=== PATIENT | female | born 1995 | race African-American/Black ===

== ENCOUNTER 2016-09-01 11:34 | Emergency (ER) | payer MEDICAID ==
[2016-09-01 11:39] VITALS: BP 118/73
[2016-09-01] MEDS ORDERED: IBUPROFEN 800 MG TABLET PO ONE (12:17)
--- NOTE | 2016-09-01 12:19 | ER Document Report ---
ED Medical Screen (RME) - General Stated Complaint: FEVER Mode of Arrival: Ambulatory Information source: Patient Notes: Patient presents with fevers body aches started yesterday. I have greeted and performed a rapid initial assessment of this patient. A comprehensive ED assessment and evaluation of the patient, analysis of test results and completion of the medical decision making process will be conducted by additional ED providers. TRAVEL OUTSIDE OF THE [place] IN LAST 30 DAYS: No - Related Data Allergies/Adverse Reactions: fish derived [Fish derived] Allergy (Verified 09/01/16 12:17) Past Medical History Past Surgical History: Reports: Hx Section - Immunizations Hx Diphtheria, Pertussis, Tetanus Vaccination: Yes - always received Physical Exam - Vital signs Vitals: Temp Pulse Resp BP Pulse Ox 101.0 F H 101 H 14 118/73 98 09/01/16 11:38 09/01/16 11:38 09/01/16 11:38 09/01/16 11:38 09/01/16 11:38 Course - Vital Signs Vital signs: Temp Pulse Resp BP Pulse Ox 101.0 F H 101 H 14 118/73 98 09/01/16 11:38 09/01/16 11:38 09/01/16 11:38 09/01/16 11:38 09/01/16 11:38
--- NOTE | 2016-09-01 13:19 | ER Document Report ---
ED Flu Like - General Chief Complaint: Fever Stated Complaint: FEVER Time seen by provider: 13:14 Mode of Arrival: Ambulatory Notes: 21-year-old female presents to ED for cough cold symptoms with a fever off and on since yesterday. She states her daughter who is also here became sick first and she got up from her. The flu tests that was sent in [facility] were negative. TRAVEL OUTSIDE OF THE [place] IN LAST 30 DAYS: No - HPI Onset: Yesterday Timing/Duration: Intermittent Quality of pain: Achy Severity: Moderate Pain Level: 3 CO exposure: No Similar symptoms previously: Yes Recently seen / treated by doctor: No - Related Data Allergies/Adverse Reactions: fish derived [Fish derived] Allergy (Verified 09/01/16 12:17) Past Medical History - General Information source: Patient - Social History Smoking Status: Current Every Day Smoker Cigarette use (# per day): Yes - 2 cigarettes a day Chew tobacco use (# tins/day): No Smoking Education Provided: Yes - less than 1 minute Frequency of alcohol use: Rare Drug Abuse: Marijuana Lives with: Spouse/Significant other - And child Family History: Arthritis, CAD, DM, Hyperlipidemia, Hypertension Patient has suicidal ideation: No Patient has homicidal ideation: No - Past Medical History Cardiac Medical History: Reports: None Pulmonary Medical History: Reports: None EENT Medical History: Reports: None Neurological Medical History: Reports: None Endocrine Medical History: Reports: None Renal/ Medical History: Reports: None Malignancy Medical History: Reports: None GI Medical History: Reports: None Musculoskeltal Medical History: Reports None Skin Medical History: Reports None Psychiatric Medical History: Reports: None Traumatic Medical History: Reports: None Infectious Medical History: Reports: None Past Surgical History: Reports: Hx Section - Immunizations Immunizations up to date: Yes Hx Diphtheria, Pertussis, Tetanus Vaccination: Yes - always received Review of Systems - Review of Systems Constitutional: Fever, Recent illness EENT: Nose discharge, Sinus discharge Cardiovascular: No symptoms reported Respiratory: Cough Gastrointestinal: No symptoms reported Genitourinary: No symptoms reported Female Genitourinary: No symptoms reported Musculoskeletal: No symptoms reported Skin: No symptoms reported Hematologic/Lymphatic: No symptoms reported Neurological/Psychological: No symptoms reported -: Yes All other systems reviewed and negative Physical Exam - Vital signs Vitals: Temp Pulse Resp BP Pulse Ox 101.0 F H 101 H 14 118/73 98 09/01/16 11:38 09/01/16 11:38 09/01/16 11:38 09/01/16 11:38 09/01/16 11:38 Interpretation: Tachycardic, Febrile - General General appearance: Appears well, Alert - HEENT Head: Normocephalic, Atraumatic Eyes: Normal Pupils: PERRL Ears: Normal External canal: Normal Tympanic membrane: Normal Sinus: Normal Nasal: Purulent discharge, Swelling Mouth/Lips: Normal Mucous membranes: Normal Pharynx: Post nasal drainage Neck: Normal - Respiratory Respiratory status: No respiratory distress Chest status: Nontender Breath sounds: Nonproductive cough Chest palpation: Normal - Cardiovascular Rhythm: Regular Heart sounds: Normal auscultation Murmur: No - Abdominal Inspection: Normal Distension: No distension Bowel sounds: Normal Tenderness: Nontender Organomegaly: No organomegaly - Back Back: Normal, Nontender - Extremities General upper extremity: Normal inspection, Nontender, Normal color, Normal ROM , Normal temperature General lower extremity: Normal inspection, Nontender, Normal color, Normal ROM , Normal temperature, Normal weight bearing. No: Deepa's sign - Neurological Neuro grossly intact: Yes Cognition: Normal Orientation: AAOx4 [place] Coma Scale Eye Opening: Spontaneous [place] Coma Scale Verbal: Oriented [place] Coma Scale Motor: Obeys Commands [place] Coma Scale Total: 15 Speech: Normal Motor strength normal: LUE, RUE, LLE, RLE Sensory: Normal - Psychological Associated symptoms: Normal affect, Normal mood - Skin Skin Temperature: Warm Skin Moisture: Dry Skin Color: Normal Course - Re-evaluation Re-evalutation: 09/01/16 13:22 Patient was given instructions for cold symptoms care. She was given ibuprofen in [facility] and her to had come down some. Patient given instructions to follow- up with her primary doctor and a list provided for her to choose one from. Patient states she smokes about 2 cigarettes a day encouraged her to stop. - Vital Signs Vital signs: Temp Pulse Resp BP Pulse Ox 101.0 F H 101 H 14 118/73 98 09/01/16 11:38 09/01/16 11:38 09/01/16 11:38 09/01/16 11:38 09/01/16 11:38 Discharge - Discharge Clinical Impression: Upper respiratory infection Qualifiers: URI type: unspecified URI Qualified Code(s): J06.9 - Acute upper respiratory infection, unspecified Fever Qualifiers: Fever type: unspecified Qualified Code(s): R50.9 - Fever, unspecified Condition: Stable Disposition: HOME, SELF-CARE Additional Instructions: UPPER RESPIRATORY ILLNESS: You have a viral infection of the respiratory passages -- a "cold." This common infection causes nasal congestion, drainage, and often sore throat and cough. It is highly contagious. The disease usually lasts about 10 to 14 days. There is no "cure" for the viral infection -- it must run its course. If there is a complication, such as bacterial infection in the nose, sinuses, middle ear, or bronchial tubes, antibiotics may be required. The antibiotics won't affect the virus. Drink plenty of fluids. A humidifier may help. An expectorant medication or decongestant may make you more comfortable. Use acetaminophen or ibuprofen for fever or aches. See the doctor if fever persists over two days, if there is any significant worsening of your symptoms, or if you simply fail to improve as expected. DECONGESTANT MEDICATION: A decongestant medicine has been suggested. Often this medicine is combined in the same tablet with an antihistamine or expectorant. This type of medicine is helpful in treating a bad cold or sinus condition, as well as in treatment of the nasal congestion of hay fever. It is not of much benefit for lung infections. Decongestant medicines are related to stimulants. They can cause an increase in blood pressure and heart rate. Persons with heart disease and high blood pressure should not take decongestants without discussing this with the physician. If you develop palpitations, chest pain, headache, or tremors, stop the medicine and consult your physician. COUGH-SUPPRESSANT & EXPECTORANT MEDICATION: You are to use a cough medication as needed for relief of symptoms. This medicine is a combination of an expectorant (to make the mucous thinner and more easily "coughed up") and a cough suppressant (to reduce the frequency of coughing). The cough-suppressant medicine is related to narcotics. You may experience mild nausea and sleepiness. Some patients who are very sensitive to narcotics may have stomach pain from this medicine. Taking the medicine with food reduces these side effects. Do not drive or work with machinery until you know how this medicine affects you. The expectorant should have no side effects. Iodine-containing expectorants (such as organidin) should not be taken by persons with active thyroid disease unless approved by your doctor. Call the doctor if you develop shortness of breath, hives, rash, itching, lightheadedness, or severe nausea and vomiting. USE OF ACETAMINOPHEN (Tylenol): Acetaminophen may be taken for pain relief or fever control. It's much safer than aspirin, offering a wider range of "safe" dosages. It is safe during . Some brand names are Tylenol, Panadol, Datril, Anacin 3, Tempra, and Liquiprin. Acetaminophen can be repeated every four hours. The following are maximum recommended dosages: >89 pounds or adults 650 mg to 900 mg Acetaminophen can be repeated every four hours. Maximum dose not to exceed 4000 mg a day. FOLLOW-UP CARE: If you have been referred to a physician for follow-up care, call the physician s office for an appointment as you were instructed or within the next two days. If you experience worsening or a significant change in your symptoms, notify the physician immediately or return to the Emergency Department at any time for re-evaluation. Referrals: [facility] [Provider Group] - Follow up as needed
== END 2016-09-01 13:15 | disposition home or self-care (01) ==
LOC: ER 11:34
DX: J06.9 Acute upper respiratory infection, unspecified (principal); R50.9 Fever, unspecified; R00.0 Tachycardia, unspecified; F17.210 Nicotine dependence, cigarettes, uncomplicated
CPT/HCPCS: 99283; 87804; J3490

== ENCOUNTER 2017-01-09 21:38 | Emergency (ER) | payer MEDICAID, OTHER ==
[2017-01-09] MEDS ORDERED: NORMAL SALINE 1000 ML 2,000 ML IV ONE (23:26)
--- NOTE | 2017-01-09 23:27 | ER Document Report ---
ED General - General Chief Complaint: Anxiety Stated Complaint: ANXIETY Time Seen by Provider: 01/09/17 23:25 Mode of Arrival: Ambulatory Information source: Patient Notes: 20-year-old female 12 weeks has been suffering with nausea and inability to keep food down. She also had an anxiety attack which exhibited as anger yelling screaming because her family does not want her with her boyfriend and father of her children. No chest pain or shortness of breath. No pelvic pain or vaginal bleeding. No WEB COORDINATOR or health department follow-up yet. TRAVEL OUTSIDE OF THE [place] IN LAST 30 DAYS: No - Related Data Allergies/Adverse Reactions: fish derived [Fish derived] Allergy (Verified 09/01/16 12:17) Past Medical History - General Information source: Patient Last Menstrual Period: 3 months - Social History Smoking Status: Former Smoker Frequency of alcohol use: None Drug Abuse: None Family History: Arthritis, CAD, DM, Hyperlipidemia, Hypertension Patient has suicidal ideation: No Patient has homicidal ideation: No - Medical History Notes: anemia Renal/ Medical History: Denies: Hx Peritoneal Dialysis Past Surgical History: Reports: Hx Section - Immunizations Immunizations up to date: Yes Hx Diphtheria, Pertussis, Tetanus Vaccination: Yes - always received Review of Systems - Review of Systems Constitutional: No symptoms reported EENT: No symptoms reported Cardiovascular: No symptoms reported Respiratory: No symptoms reported Gastrointestinal: See HPI Genitourinary: No symptoms reported Female Genitourinary: No symptoms reported Musculoskeletal: No symptoms reported Skin: No symptoms reported Hematologic/Lymphatic: No symptoms reported Neurological/Psychological: See HPI Physical Exam - Vital signs Vitals: Temp Pulse Resp BP Pulse Ox 98.5 F 102 H 16 136/74 H 99 01/09/17 21:48 01/09/17 21:48 01/09/17 21:48 01/09/17 21:48 01/09/17 21:48 Interpretation: Normal - General General appearance: Appears well, Alert In distress: None - HEENT Head: Normocephalic, Atraumatic Eyes: Normal Conjunctiva: Normal Pupils: PERRL Mucous membranes: Dry Neck: Supple. No: Lymphadenopathy - Respiratory Respiratory status: No respiratory distress Chest status: Nontender Breath sounds: Normal Chest palpation: Normal - Cardiovascular Rhythm: Regular Heart sounds: Normal auscultation Murmur: No - Abdominal Inspection: Normal Distension: No distension Bowel sounds: Normal Tenderness: Nontender. No: Tender Organomegaly: No organomegaly, Other - no fundus palpated yet - Back Back: Normal, Nontender. No: CVA tenderness - Extremities General upper extremity: Normal inspection, Nontender, Normal color, Normal ROM , Normal temperature General lower extremity: Normal inspection, Nontender, Normal color, Normal ROM , Normal temperature, Normal weight bearing. No: Deepa's sign - Neurological Neuro grossly intact: Yes Cognition: Normal Orientation: AAOx4 [place] Coma Scale Eye Opening: Spontaneous [place] Coma Scale Verbal: Oriented Elizabeth Coma Scale Motor: Obeys Commands [place] Coma Scale Total: 15 Speech: Normal Motor strength normal: LUE, RUE, LLE, RLE Sensory: Normal - Psychological Associated symptoms: Normal affect, Normal mood - Skin Skin Temperature: Warm - \ I have greeted and performed a rapid initial assessment of this patient. A comprehensive ED assessment, evaluation of the patient, analysis of test results, and completion of the medical decision making process will be conducted by additional ED provider Skin Moisture: Dry Skin Color: Normal Skin irregularity: negative: Rash Course - Re-evaluation Re-evalutation: 01/10/17 01:15 Patient has a viable 11 week 6 day IUP. She is anemic with a hemoglobin of 9.3 and she has been as low in the sevens in the past I will advised her to take vitamins with iron. Her urinalysis is negative. She feels better after IV fluid. - Vital Signs Vital signs: Temp Pulse Resp BP Pulse Ox 98.1 F 92 16 128/68 H 100 01/10/17 02:00 01/10/17 02:00 01/10/17 02:00 01/10/17 02:00 01/10/17 02:00 - Laboratory Result Diagrams: 01/10/17 00:00 01/10/17 00:00 Laboratory results interpreted by me: 01/10/17 01/10/17 01/10/17 00:00 00:00 00:00 Hgb 9.3 L Hct 29.2 L MCV 73 L MCH 23.3 L MCHC 31.9 L RDW 19.4 H Glucose 72 L Serum HCG, Qual POSITIVE H Discharge - Discharge Clinical Impression: Nausea, Anemia, 11 week 6 day Condition: Good Disposition: HOME, SELF-CARE Instructions: Anxiety ([facility]), [facility] [employer] [facility], [facility] [place], [facility]), Anemia, Iron Deficiency ([facility]), Nausea or Vomiting, Nonspecific ([facility]), ([facility]) Additional Instructions: drink 2 liters water daily Start taking multivitamin with iron daily Return to the emergency room for any abdominal pain or vaginal bleeding. Copies of lab were given to you. See the health department or WEB COORDINATOR for this . Forms: Return to Work
[2017-01-10 00:24] LABS: ABSOLUTE EOSINOPHILS # (AUTO) 0.1 10^3/uL (0.0-0.6); ABSOLUTE LYMPHOCYTES (AUTO) 1.3 10^3/uL (0.5-4.7); ABSOLUTE MONOCYTES (AUTO) 0.5 10^3/uL (0.1-1.4); ABSOLUTE NEUT (AUTO) 2.6 10^3/uL (1.7-8.2); BASOPHILS % (AUTO) 0.3 % (0-2); EOSINOPHILS % (AUTO) 1.9 % (0-6); HEMATOCRIT 29.2 % (36.0-47.0); HEMOGLOBIN 9.3 g/dL (12.0-15.5); HGB HCT DIFFERENCE -1.3; LYMPHOCYTES % (AUTO) 28.6 % (13-45); MEAN CORPUSCULAR HEMOGLOBIN 23.3 pg (27.0-33.4); MEAN CORPUSCULAR HGB CONC 31.9 g/dL (32.0-36.0); MEAN CORPUSCULAR VOLUME 73 fl (80-97); MONOCYTES % (AUTO) 10.8 % (3-13); RED CELL DISTRIBUTION WIDTH 19.4 % (11.5-14.0); SEGMENTED NEUTROPHILS % (AUTO) 58.4 % (42-78); WHITE BLOOD COUNT 4.4 10^3/uL (4.0-10.5)
[2017-01-10 00:39] LABS: ALANINE AMINOTRANSFERASE 17 U/L (9-52); ALBUMIN 4.1 g/dL (3.5-5.0); ALKALINE PHOSPHATASE 47 U/L (38-126); ANION GAP 14 (5-19); ASPARTATE AMINO TRANSFERASE 19 U/L (14-36); BILIRUBIN,DIRECT 0.3 mg/dL (0.0-0.4); BILIRUBIN,TOTAL 0.5 mg/dL (0.2-1.3); BLOOD UREA NITROGEN 8 mg/dL (7-20); CALCIUM 9.3 mg/dL (8.4-10.2); CARBON DIOXIDE 23 mmol/L (22-30); CHLORIDE 102 mmol/L (98-107); CREATININE RESULT 0.59 mg/dL (0.52-1.25); GLUCOSE 72 mg/dL (75-110); SODIUM 139.4 mmol/L (137-145); TOTAL PROTEIN 7.7 g/dL (6.3-8.2)
--- NOTE | 2017-01-10 01:00 | RADIOLOGY REPORT (SQ) ---
EXAM DESCRIPTION: U/S [id number] TRNABD 1GES W/ODOP COMPLETED DATE/TIME: 01/10/2017 12:50 am REASON FOR STUDY: abd pain 3 months COMPARISON: None. TECHNIQUE: Transabdominal static and realtime grayscale images acquired of the pelvis. Additional se lected spectral and color Doppler images recorded. All images stored on PACs. bHCG: Not available. LIMITATIONS: None. FINDINGS: FETUS: Living intrauterine . EGA: 11 weeks 6 days DIPTI: 07/26/2017. FHR: 173 beats per minute. SUBCHORIONIC BLEED: No. SIZE OF BLEED: Not applicable. UTERUS: No masses. No anomalies. CERVICAL LENGTH: 3.6 Closed. RIGHT ADNEXA: Ovary not identified. No adnexal free fluid. No adnexal masses. LEFT ADNEXA: Normal ovary with normal vascular flow. No adnexal free fluid. 1.9 cm likely corpus luteal cyst. FREE FLUID: None. OTHER: No other significant finding. IMPRESSION: LIVING INTRAUTERINE . EGA 11 weeks 6 days Trimester of : First - 0 to 13 weeks. TECHNICAL DOCUMENTATION: JOB ID: [id number] [employer]- All Rights Reserved
[2017-01-10 01:06] LABS: APPEARANCE,URINE SLIGHTLY-CLOUDY; BILIRUBIN,URINE NEGATIVE (NEGATIVE); GLUCOSE, URINE NEGATIVE (NEGATIVE); KETONES,URINE NEGATIVE (NEGATIVE); LEUKOCYTE ESTERASE,URINE NEGATIVE (NEGATIVE); NITRITE,URINE NEGATIVE (NEGATIVE); PROTEIN,URINE NEGATIVE (NEGATIVE); URINE SPECIFIC GRAVITY 1.014; UROBILINOGEN,URINE NEGATIVE mg/dL (<2.0)
[2017-01-10 02:20] VITALS: BP 128/68
== END 2017-01-10 02:10 | disposition home or self-care (01) ==
LOC: ER 21:38
DX: O26.891 Other specified pregnancy related conditions, first trimester (principal); R11.0 Nausea; O99.02 Anemia complicating childbirth; O99.341 Other mental disorders complicating pregnancy, first trimester; F41.9 Anxiety disorder, unspecified; Z3A.11 11 weeks gestation of pregnancy; Z91.013 Allergy to seafood; Z87.891 Personal history of nicotine dependence
CPT/HCPCS: 99284; 36415; 87086; 84703; 85025; 80053; 81001; 76801; J7030

== ENCOUNTER 2017-01-23 21:28 | Emergency (ER) | payer MEDICAID ==
[2017-01-23 21:33] VITALS: BP 134/83
--- NOTE | 2017-01-23 21:49 | ER Document Report ---
ED Medical Screen (RME) - General Chief Complaint: Suicidal Ideation Stated Complaint: POSSIBLY SUICIDAL Time Seen by Provider: 01/23/17 21:47 Mode of Arrival: Ambulatory Information source: Friend Notes: Patient presents 2 months reporting that she does not want to live and wants to kill herself. Patient's friend states that she does smoke marijuana and has been taking Percocet illicitly. Patient was found banging her head on a desk in a room and security was called to her side. hx: Anxiety, depression, substance abuse TRAVEL OUTSIDE OF THE [place] IN LAST 30 DAYS: No - Related Data Allergies/Adverse Reactions: fish derived [Fish derived] Allergy (Verified 09/01/16 12:17) Past Medical History Renal/ Medical History: Denies: Hx Peritoneal Dialysis Past Surgical History: Reports: Hx Section - Immunizations Immunizations up to date: Yes Hx Diphtheria, Pertussis, Tetanus Vaccination: Yes - always received Physical Exam - Vital signs Vitals: Temp Pulse Resp BP Pulse Ox 98.6 F 110 H 20 134/83 H 98 01/23/17 21:30 01/23/17 21:30 01/23/17 21:30 01/23/17 21:30 01/23/17 21:30 - Psychological Associated symptoms: Agitated, Anxious, Tearful Course - Vital Signs Vital signs: Temp Pulse Resp BP Pulse Ox 98.6 F 110 H 20 134/83 H 98 01/23/17 21:30 01/23/17 21:30 01/23/17 21:30 01/23/17 21:30 01/23/17 21:30
--- NOTE | 2017-01-25 17:04 | EKG REPORT ---
SEVERITY:- NORMAL ECG - SINUS RHYTHM : Confirmed by: Carmel Garcia MD 25-Jan-2017 17:03:06
== END 2017-01-23 22:45 | disposition left against medical advice (07) ==
LOC: ER 21:28
DX: Z53.9 Procedure and treatment not carried out, unspecified reason (principal); R45.851 Suicidal ideations; F12.10 Cannabis abuse, uncomplicated; Z79.899 Other long term (current) drug therapy
CPT/HCPCS: 93005; 93010; 99281

== ENCOUNTER 2017-01-25 12:41 | Emergency (ER) | payer MEDICAID, OTHER ==
--- NOTE | 2017-01-25 13:09 | ER Document Report ---
ED Medical Screen (RME) - General Chief Complaint: Psych Problem Stated Complaint: WEAKNESS, PSYCH PROBLEM Time Seen by Provider: 01/25/17 13:06 Mode of Arrival: Ambulatory Information source: Patient Notes: This is a 21-year-old female that is 2 para 1, in the beginning of her second trimester who presents to the emergency room with depression, not eating or drinking because of her depression. Patient states that she is been homeless and living on the streets for the past few days because she is no longer with her boyfriend. Although the patient has family in the area, she states she does not associate with them so there is a lack of family support. Patient denies any fever, chills, nausea, vomiting, abdominal pain. Patient states she is just been very depressed. TRAVEL OUTSIDE OF THE [place] IN LAST 30 DAYS: No - Related Data Allergies/Adverse Reactions: fish derived [Fish derived] Allergy (Verified 09/01/16 12:17) Past Medical History Renal/ Medical History: Denies: Hx Peritoneal Dialysis Past Surgical History: Reports: Hx Section - Immunizations Immunizations up to date: Yes Hx Diphtheria, Pertussis, Tetanus Vaccination: Yes - always received Physical Exam - Vital signs Vitals: Temp Pulse Resp BP Pulse Ox 98.6 F 83 16 110/68 99 01/25/17 12:54 01/25/17 12:54 01/25/17 12:54 01/25/17 12:54 01/25/17 12:54 Course - Re-evaluation Re-evalutation: 01/25/17 20:27 Note: I have appreciated Dr. Chisholm's note. I discussed case with the psychiatry team and they feel that the patient does not meet criteria for inpatient psychiatric care. She will be referred to outpatient counseling services. - Vital Signs Vital signs: Temp Pulse Resp BP Pulse Ox 98.0 F 87 16 117/69 98 01/25/17 19:07 01/25/17 19:07 01/25/17 19:07 01/25/17 19:07 01/25/17 19:07 - Laboratory Result Diagrams: 01/25/17 13:34 01/25/17 13:34 Laboratory results interpreted by me: 01/25/17 01/25/17 01/25/17 13:34 13:34 13:34 Hgb 9.4 L Hct 29.2 L MCV 73 L MCH 23.6 L RDW 18.7 H Carbon Dioxide 20 L BUN 5 L Glucose 72 L Serum HCG, Qual Beta HCG, Quant Urine Ketones 80 H Salicylates < 1.0 L Acetaminophen < 10 L 01/25/17 01/25/17 13:34 13:34 Hgb Hct MCV MCH RDW Carbon Dioxide BUN Glucose Serum HCG, Qual POSITIVE H Beta HCG, Quant 65678.00 H Urine Ketones Salicylates Acetaminophen Doctor's Discharge - Discharge Clinical Impression: , Depression Condition: Stable Disposition: HOME, SELF-CARE Additional Instructions: DEPRESSION: Your evaluation reveals that you have mental depression. While symptoms may be vague, they often include disturbance of sleep, fatigue, loss of appetite , and general loss of interest in life. While depression may be a side effect of drugs, or a reaction to a major change in your life, many cases have no known cause. If depression is acute, and related to a major loss in your life, you can expect it to clear completely with time. If you have been depressed a long time , are prone to repeated bouts of depression or low mood, or have been thinking of suicide, get help. Depression can be treated with anti-depressant medication and counselling. Long-term depression will often take a few weeks to clear, even with appropriate medication. Follow-up care is important. SUICIDAL IDEATION: Suicidal ideation is a common medical term for thoughts about suicide, which may be as detailed as a formulated plan, without the suicidal act itself. Although most people who undergo suicidal ideation do not commit suicide, some go on to make suicide attempts. The range of suicidal ideation varies greatly from fleeting to detailed planning, role playing, and unsuccessful attempts. While thoughts about suicide are common, most people do not carry out serious actions to commit suicide. Based upon your evaluation and discussion with you, we do not believe you are currently at risk to act upon your thoughts of suicide. You have agreed to return to the Emergency Department, at any time , if you feel inclined to act upon your suicidal thoughts. FOLLOW-UP CARE: You are recommended to follow up with [facility] for mental health services tomorrow morning 01/26/2017 at 8 am. If you experience worsening or a significant change in your symptoms, notify the physician immediately or return to the Emergency Department at any time for re-evaluation. Referrals: [facility] [Outside] - 01/26/17 8:00 am
[2017-01-25 13:46] LABS: ABSOLUTE EOSINOPHILS # (AUTO) 0.1 10^3/uL (0.0-0.6); ABSOLUTE LYMPHOCYTES (AUTO) 1.5 10^3/uL (0.5-4.7); ABSOLUTE MONOCYTES (AUTO) 0.4 10^3/uL (0.1-1.4); ABSOLUTE NEUT (AUTO) 4.1 10^3/uL (1.7-8.2); BASOPHILS % (AUTO) 0.6 % (0-2); EOSINOPHILS % (AUTO) 1.9 % (0-6); HEMATOCRIT 29.2 % (36.0-47.0); HEMOGLOBIN 9.4 g/dL (12.0-15.5); LYMPHOCYTES % (AUTO) 24.1 % (13-45); MEAN CORPUSCULAR HEMOGLOBIN 23.6 pg (27.0-33.4); MEAN CORPUSCULAR HGB CONC 32.4 g/dL (32.0-36.0); MEAN CORPUSCULAR VOLUME 73 fl (80-97); MONOCYTES % (AUTO) 6.8 % (3-13); RED BLOOD COUNT 4.01 10^6/uL (3.72-5.28); RED CELL DISTRIBUTION WIDTH 18.7 % (11.5-14.0); SEGMENTED NEUTROPHILS % (AUTO) 66.6 % (42-78); WHITE BLOOD COUNT 6.1 10^3/uL (4.0-10.5)
[2017-01-25 13:55] LABS: APPEARANCE,URINE SLIGHTLY-CLOUDY; BILIRUBIN,URINE NEGATIVE (NEGATIVE); GLUCOSE, URINE NEGATIVE (NEGATIVE); KETONES,URINE 80 mg/dL (NEGATIVE); LEUKOCYTE ESTERASE,URINE NEGATIVE (NEGATIVE); NITRITE,URINE NEGATIVE (NEGATIVE); PROTEIN,URINE NEGATIVE (NEGATIVE); URINE SPECIFIC GRAVITY 1.013; UROBILINOGEN,URINE NEGATIVE mg/dL (<2.0)
[2017-01-25 14:08] LABS: URINE BARBITURATES SCREEN NEGATIVE; URINE METHADONE SCREEN NEGATIVE; URINE OPIATES LOW NEGATIVE; URINE PHENCYCLIDINE SCREEN NEGATIVE
[2017-01-25 14:12] LABS: ALANINE AMINOTRANSFERASE 15 U/L (9-52); ALKALINE PHOSPHATASE 56 U/L (38-126); ANION GAP 14 (5-19); ASPARTATE AMINO TRANSFERASE 19 U/L (14-36); BILIRUBIN,DIRECT 0.3 mg/dL (0.0-0.4); BILIRUBIN,TOTAL 0.7 mg/dL (0.2-1.3); BLOOD UREA NITROGEN 5 mg/dL (7-20); CALCIUM 9.1 mg/dL (8.4-10.2); CARBON DIOXIDE 20 mmol/L (22-30); CHLORIDE 103 mmol/L (98-107); GLUCOSE 72 mg/dL (75-110); POTASSIUM 3.7 mmol/L (3.6-5.0); SODIUM 137.2 mmol/L (137-145); TOTAL PROTEIN 7.8 g/dL (6.3-8.2)
[2017-01-25 14:14] LABS: ALCOHOL < 10 mg/dL (NONE DETECTED)
--- NOTE | 2017-01-25 15:16 | ER Document Report ---
ED General - General Mode of Arrival: Ambulatory TRAVEL OUTSIDE OF THE [place] IN LAST 30 DAYS: No - HPI Patient complains to provider of: depression with self-harm <TIFFANY RUEDA - Last Filed: 01/25/17 15:12> <GRACE JOSEPH - Last Filed: 01/25/17 19:01> - General Chief Complaint: Psych Problem Stated Complaint: WEAKNESS, PSYCH PROBLEM Time Seen by Provider: 01/25/17 13:06 - HPI Notes: Patient coming in today for evaluation of depression and thoughts of harming herself. Patient likely seen 2 days ago however he eloped prior to reinforcement of her IV protocol. Patient presents today states severe depression not wanting to eat due to depression patient is also states she is approximately 2 months. Patient is a with a normal first . Patient states he does smoke marijuana. Patient states she has had depression in the past. Patient states he has had thoughts about harming herself however does not have a plan at this time. Upon my evaluation patient is added to the very flat patient is very soft-spoken denies any past medical problems denies any current medications. (TIFFANY RUEDA) - Related Data Allergies/Adverse Reactions: fish derived [Fish derived] Allergy (Verified 09/01/16 12:17) Past Medical History - General Information source: Patient - Social History Smoking Status: Never Smoker Chew tobacco use (# tins/day): No Frequency of alcohol use: None Drug Abuse: None Family History: Arthritis, CAD, DM, Hyperlipidemia, Hypertension Patient has suicidal ideation: Yes Patient has homicidal ideation: No Renal/ Medical History: Denies: Hx Peritoneal Dialysis Past Surgical History: Reports: Hx Section - Immunizations Immunizations up to date: Yes Hx Diphtheria, Pertussis, Tetanus Vaccination: Yes - always received <TIFFANY RUEDA - Last Filed: 01/25/17 15:12> Review of Systems - Review of Systems Constitutional: No symptoms reported EENT: No symptoms reported Cardiovascular: No symptoms reported Respiratory: No symptoms reported Gastrointestinal: No symptoms reported Genitourinary: No symptoms reported Female Genitourinary: No symptoms reported Musculoskeletal: No symptoms reported Skin: No symptoms reported Hematologic/Lymphatic: No symptoms reported Neurological/Psychological: Depression, Other - thoughts of self-harm <TIFFANY RUEDA - Last Filed: 01/25/17 15:12> Physical Exam - Vital signs Interpretation: Normal - General General appearance: Appears well, Alert - HEENT Head: Normocephalic, Atraumatic Eyes: Normal Pupils: PERRL - Respiratory Respiratory status: No respiratory distress Chest status: Nontender Breath sounds: Normal Chest palpation: Normal - Cardiovascular Rhythm: Regular Heart sounds: Normal auscultation Murmur: No - Abdominal Inspection: Normal Distension: No distension Bowel sounds: Normal Tenderness: Nontender Organomegaly: No organomegaly - Back Back: Normal, Nontender - Extremities General upper extremity: Normal inspection, Nontender, Normal color, Normal ROM , Normal temperature General lower extremity: Normal inspection, Nontender, Normal color, Normal ROM , Normal temperature, Normal weight bearing. No: Deepa's sign - Neurological Neuro grossly intact: Yes Cognition: Normal Orientation: AAOx4 [place] Coma Scale Eye Opening: Spontaneous Austin Coma Scale Verbal: Oriented Austin Coma Scale Motor: Obeys Commands Austin Coma Scale Total: 15 Speech: Normal Motor strength normal: LUE, RUE, LLE, RLE Sensory: Normal - Psychological Associated symptoms: Normal affect, Normal mood - Skin Skin Temperature: Warm Skin Moisture: Dry Skin Color: Normal <TIFFANY RUEDA - Last Filed: 01/25/17 15:12> Course - Laboratory Result Diagrams: 01/25/17 13:34 01/25/17 13:34 <TIFFANY RUEDA - Last Filed: 01/25/17 15:12> - Laboratory Result Diagrams: 01/25/17 13:34 01/25/17 13:34 <GRACE JOSEPH - Last Filed: 01/25/17 19:01> - Re-evaluation Re-evalutation: 01/25/17 15:14 Bedside ultrasound showed heart rate at 143 146. Patient has good movement. A biparietal length measured the fetus at approximately 14 weeks. Lab work does show some signs concerning for starvation patient after showing bedside ultrasound of the fetus start smile stating that she was now hungry and requesting food to eat. We will see the patient this time do not see need for any IV access at this time patient will be medically cleared for psychiatric evaluation and disposition (TIFFANY RUEDA) - Vital Signs Vital signs: Temp Pulse Resp BP Pulse Ox 98.2 F 88 16 123/78 100 01/25/17 17:33 06/21/17 17:33 01/25/17 17:33 01/25/17 17:33 01/25/17 17:33 - Laboratory Laboratory results interpreted by me: 01/25/17 01/25/17 01/25/17 13:34 13:34 13:34 Hgb 9.4 L Hct 29.2 L MCV 73 L MCH 23.6 L RDW 18.7 H Carbon Dioxide 20 L BUN 5 L Glucose 72 L Serum HCG, Qual Beta HCG, Quant Urine Ketones 80 H Salicylates < 1.0 L Acetaminophen < 10 L 01/25/17 01/25/17 13:34 13:34 Hgb Hct MCV MCH RDW Carbon Dioxide BUN Glucose Serum HCG, Qual POSITIVE H Beta HCG, Quant 10330.00 H Urine Ketones Salicylates Acetaminophen Discharge <TIFFANY RUEDA - Last Filed: 01/25/17 15:12> <GRACE JOSEPH - Last Filed: 01/25/17 19:01> - Discharge Clinical Impression: Qualifiers: Weeks of gestation: 14 weeks Qualified Code(s): Z3A.14 - 14 weeks gestation of Depression Qualifiers: Depression Type: unspecified Qualified Code(s): F32.9 - Major depressive disorder, single episode, unspecified Condition: Stable Disposition: HOME, SELF-CARE Additional Instructions: DEPRESSION: Your evaluation reveals that you have mental depression. While symptoms may be vague, they often include disturbance of sleep, fatigue, loss of appetite , and general loss of interest in life. While depression may be a side effect of drugs, or a reaction to a major change in your life, many cases have no known cause. If depression is acute, and related to a major loss in your life, you can expect it to clear completely with time. If you have been depressed a long time , are prone to repeated bouts of depression or low mood, or have been thinking of suicide, get help. Depression can be treated with anti-depressant medication and counselling. Long-term depression will often take a few weeks to clear, even with appropriate medication. Follow-up care is important. SUICIDAL IDEATION: Suicidal ideation is a common medical term for thoughts about suicide, which may be as detailed as a formulated plan, without the suicidal act itself. Although most people who undergo suicidal ideation do not commit suicide, some go on to make suicide attempts. The range of suicidal ideation varies greatly from fleeting to detailed planning, role playing, and unsuccessful attempts. While thoughts about suicide are common, most people do not carry out serious actions to commit suicide. Based upon your evaluation and discussion with you, we do not believe you are currently at risk to act upon your thoughts of suicide. You have agreed to return to the Emergency Department, at any time , if you feel inclined to act upon your suicidal thoughts. FOLLOW-UP CARE: You are recommended to follow up with [facility] for mental health services tomorrow morning 01/26/2017 at 8 am. If you experience worsening or a significant change in your symptoms, notify the physician immediately or return to the Emergency Department at any time for re-evaluation. Referrals: [facility] [Outside] - 01/26/17 8:00 am
--- NOTE | 2017-01-25 18:27 | ER Document Report ---
ED Psych Disorder / Suicide - General Chief Complaint: Psych Problem Stated Complaint: WEAKNESS, PSYCH PROBLEM Time Seen by Provider: 01/25/17 13:06 Mode of Arrival: Ambulatory Information source: Patient TRAVEL OUTSIDE OF THE [place] IN LAST 30 DAYS: No - HPI Patient complains to provider of: Suicidal ideation - No Plan Onset: Other - Years Onset was: Cannot confirm Associated symptoms: Decreased appetite, Depressed Notes: Patient coming in today for evaluation of depression and thoughts of harming herself. Patient likely seen 2 days ago however he eloped prior to reinforcement of her IV protocol. Patient presents today states severe depression not wanting to eat due to depression patient is also states she is approximately 2 months. Patient states he does smoke marijuana. Patient states she has had depression in the past. Patient states he has had thoughts about harming herself however does not have a plan at this time. Patient states that she came in to "get help with me being crazy." Patient is unable to provide examples or symptoms she suffers from to support her statement that she is "crazy." She disclosed friends and family tell her she is, however she says she "never sticks around to hear what they have to say." She continued to state she has suicidal ideation "all the time, I just don't act on it." Patient denies having a plan. Patient states she has lived in [place] for about 5 years, graduated, currently has no job and no place to live. Patient disclosed that she does have family in the local area but "does not claim them." Patient does not have any outpatient services and does not take any medication. Patient states that she needs to "get out of her head, I feel trapped." She states that she has felt this way for about 3 years. She states she is dealt with it in her own way like "crying" however lately it just been "too much." Patient is alert and orientated to person, place, time and circumstance. Mood is dysphoric with congruent affect. Patient endorses suicidal ideation with no plan. Patient denies homicidal ideation. Patient denies auditory visual hallucinations; patient is not demonstrating any behavior congruent with responding to internal stimuli. No delusions are noted. Thought processes organized and linear. Conversational speech was low difficult to hear. Eye contact was poor. Intellectual abilities appear to be within average range. Attention and concentration are fair. Insight, judgment, impulse control is poor. 300.4 (F34.1) persistent depressive disorder (dysthymia) Impression\\plan: Patient is recommended for rescind of IVC and is considered psychiatrically clear for discharge. Patient endorses suicidal ideation with no plan. Patient does not meet IVC criteria per [place] GS 122C. Patient discloses years of depressive symptoms however has never gone to mental health services, taken medication, or attempted suicide. Patient recently from her boyfriend and currently has nowhere to live. Patient disclosed the last time she was homeless was when she was 13 or 14 years old when she was living with her mother. Patient is recommended for outpatient services. Dr. Li was consulted on the care and management of this patient; attending physician in agreement with recommendations and disposition - Related Data Allergies/Adverse Reactions: fish derived [Fish derived] Allergy (Verified 09/01/16 12:17) Past Medical History - General Information source: Patient - Social History Smoking Status: Never Smoker Chew tobacco use (# tins/day): No Frequency of alcohol use: None Drug Abuse: None Family History: Arthritis, CAD, DM, Hyperlipidemia, Hypertension Patient has suicidal ideation: Yes Patient has homicidal ideation: No Renal/ Medical History: Denies: Hx Peritoneal Dialysis Past Surgical History: Reports: Hx Section - Immunizations Immunizations up to date: Yes Hx Diphtheria, Pertussis, Tetanus Vaccination: Yes - always received Physical Exam - Vital signs Vitals: Temp Pulse Resp BP Pulse Ox 98.6 F 83 16 110/68 99 01/25/17 12:54 01/25/17 12:54 01/25/17 12:54 01/25/17 12:54 01/25/17 12:54 Course - Vital Signs Vital signs: Temp Pulse Resp BP Pulse Ox 98.6 F 83 18 110/68 99 01/25/17 12:54 01/25/17 12:54 01/25/17 13:00 01/25/17 12:54 01/25/17 12:54 - Laboratory Result Diagrams: 01/25/17 13:34 01/25/17 13:34 Laboratory results interpreted by me: 01/25/17 01/25/17 01/25/17 13:34 13:34 13:34 Hgb 9.4 L Hct 29.2 L MCV 73 L MCH 23.6 L RDW 18.7 H Carbon Dioxide 20 L BUN 5 L Glucose 72 L Serum HCG, Qual Urine Ketones 80 H Salicylates < 1.0 L Acetaminophen < 10 L 01/25/17 13:34 Hgb Hct MCV MCH RDW Carbon Dioxide BUN Glucose Serum HCG, Qual POSITIVE H Urine Ketones Salicylates Acetaminophen Discharge - Discharge Clinical Impression: Qualifiers: Weeks of gestation: 14 weeks Qualified Code(s): Z3A.14 - 14 weeks gestation of Depression Qualifiers: Depression Type: unspecified Qualified Code(s): F32.9 - Major depressive disorder, single episode, unspecified Condition: Stable Disposition: HOME, SELF-CARE Additional Instructions: DEPRESSION: Your evaluation reveals that you have mental depression. While symptoms may be vague, they often include disturbance of sleep, fatigue, loss of appetite , and general loss of interest in life. While depression may be a side effect of drugs, or a reaction to a major change in your life, many cases have no known cause. If depression is acute, and related to a major loss in your life, you can expect it to clear completely with time. If you have been depressed a long time , are prone to repeated bouts of depression or low mood, or have been thinking of suicide, get help. Depression can be treated with anti-depressant medication and counselling. Long-term depression will often take a few weeks to clear, even with appropriate medication. Follow-up care is important. SUICIDAL IDEATION: Suicidal ideation is a common medical term for thoughts about suicide, which may be as detailed as a formulated plan, without the suicidal act itself. Although most people who undergo suicidal ideation do not commit suicide, some go on to make suicide attempts. The range of suicidal ideation varies greatly from fleeting to detailed planning, role playing, and unsuccessful attempts. While thoughts about suicide are common, most people do not carry out serious actions to commit suicide. Based upon your evaluation and discussion with you, we do not believe you are currently at risk to act upon your thoughts of suicide. You have agreed to return to the Emergency Department, at any time , if you feel inclined to act upon your suicidal thoughts. FOLLOW-UP CARE: You are recommended to follow up with [facility] for mental health services tomorrow morning 01/26/2017 at 8 am. If you experience worsening or a significant change in your symptoms, notify the physician immediately or return to the Emergency Department at any time for re-evaluation. Referrals: [facility] [Outside] - 01/26/17 8:00 am
[2017-01-25 19:10] VITALS: BP 117/69
== END 2017-01-25 19:05 | disposition home or self-care (01) ==
LOC: ER 12:41
DX: F32.9 Major depressive disorder, single episode, unspecified (principal); R53.1 Weakness; F34.1 Dysthymic disorder; Z3A.14 14 weeks gestation of pregnancy
CPT/HCPCS: 36415; 80053; 80307; 81001; 84702; 84703; 85025; 86900; 86901; 99284

== ENCOUNTER 2017-05-21 13:29 | Emergency (ER) | payer MEDICAID, OTHER ==
[2017-05-21] MEDS ORDERED: DEXTROSE 5%-LACTATED RINGERS 1,000 ML IV ONE (14:45)
--- NOTE | 2017-05-21 14:48 | ER Document Report ---
ED Syncope and Near Syncope - General Chief Complaint: Near Syncope Stated Complaint: POSSIBLE SYNCOPY Time Seen by Provider: 05/21/17 14:47 Mode of Arrival: Medic Information source: Patient, Emergency Med Personnel TRAVEL OUTSIDE OF THE [place] IN LAST 30 DAYS: No - HPI Patient complains to provider of: Nearly fainting Episode witnessed (by whom): No Multiple episodes (how many): 3 When did episodes begin: THIS AFTERNOON When was most recent episode: JUST PRIOR TO EMS CALL Symptoms prior to episode: Lightheaded, Short of breath - MILD, WHILE WALKING Position/Activity at time of episode: Standing - WALKING Quality of pain: No pain Context: Almost passed out, Collapsed, [place] faint. denies: Incontinent of stool , Incontinent of urine, Lost consciousness Injury location: None Current symptoms: None/feels back to normal - AFTER 2 LITERS IVF Similar symptoms previously: No Recently seen / treated by doctor: No - HAS NOT BEEN COMPLIANT W/ CARE - Related Data Allergies/Adverse Reactions: fish derived [Fish derived] Allergy (Verified 09/01/16 12:17) Past Medical History - General Information source: Patient - Social History Smoking Status: Never Smoker Chew tobacco use (# tins/day): No Frequency of alcohol use: None Drug Abuse: None Lives with: Spouse/Significant other Family History: Arthritis, CAD, DM, Hyperlipidemia, Hypertension Patient has suicidal ideation: No Patient has homicidal ideation: No - Past Medical History Cardiac Medical History: Reports: None Pulmonary Medical History: Reports: None EENT Medical History: Reports: None Neurological Medical History: Reports: None Endocrine Medical History: Reports: None Renal/ Medical History: Reports: None. Denies: Hx Peritoneal Dialysis Malignancy Medical History: Reports: None GI Medical History: Reports: None Musculoskeltal Medical History: Reports None Psychiatric Medical History: Reports: None Past Surgical History: Reports: Hx Section - Immunizations Immunizations up to date: Yes Hx Diphtheria, Pertussis, Tetanus Vaccination: Yes - always received Review of Systems - Review of Systems Constitutional: See HPI EENT: No symptoms reported Cardiovascular: See HPI Respiratory: See HPI Gastrointestinal: No symptoms reported Female Genitourinary: Musculoskeletal: No symptoms reported Skin: No symptoms reported Hematologic/Lymphatic: No symptoms reported Neurological/Psychological: See HPI Physical Exam - Vital signs Vitals: Temp Pulse Resp BP Pulse Ox 98.3 F 87 18 111/57 L 98 10/15/17 14:01 05/21/17 14:01 05/21/17 14:01 05/21/17 14:01 05/21/17 14:01 Interpretation: Hypotensive. No: Tachycardic, Tachypneic - General General appearance: Appears well, Alert In distress: None - HEENT Head: Normocephalic Eyes: Normal. No: Pale conjunctiva Conjunctiva: Normal Ears: Normal Nasal: Normal Mouth/Lips: Normal Mucous membranes: Normal Pharynx: Normal Neck: Normal - Respiratory Respiratory status: No respiratory distress Breath sounds: Normal - Cardiovascular Rhythm: Regular Heart sounds: Normal auscultation Murmur: No - Abdominal Inspection: Gravid female - Extremities General upper extremity: Normal inspection General lower extremity: Normal inspection. No: Edema - Neurological Neuro grossly intact: Yes Cognition: Normal Orientation: AAOx4 - Psychological Associated symptoms: Normal affect, Normal mood - Skin Skin Temperature: Warm Skin Moisture: Dry Skin Color: Normal Skin Turgor: Elastic Course - Vital Signs Vital signs: Temp Pulse Resp BP Pulse Ox 98.3 F 88 18 110/61 98 05/21/17 14:01 05/21/17 16:19 05/21/17 14:01 05/21/17 16:19 05/21/17 14:01 - Laboratory Result Diagrams: 05/21/17 15:09 Laboratory results interpreted by me: 05/21/17 15:09 Chloride 109 H Carbon Dioxide 21 L BUN 4 L Glucose 73 L AST 13 L Total Protein 6.0 L Albumin 3.2 L - EKG Interpretation by Tx EKG shows normal: Sinus rhythm, [place], Intervals, QRS Complexes, ST-T Waves Rate: Normal Rhythm: NSR Discharge - Discharge Clinical Impression: Near syncope, Third trimester Condition: Stable Disposition: HOME, SELF-CARE Instructions: Near Syncopal Episode ([facility]) Additional Instructions: REST, DRINK PLENTY OF FLUIDS. FOLLOW UP WITH OB. SOON POSSIBLE, CALL TOMORROW FOR APPOINTMENT. RETURN TO E.R. IF PROBLEMS.
[2017-05-21 15:34] LABS: ALANINE AMINOTRANSFERASE 19 U/L (9-52); ALBUMIN 3.2 g/dL (3.5-5.0); ALKALINE PHOSPHATASE 82 U/L (38-126); ANION GAP 12 (5-19); ASPARTATE AMINO TRANSFERASE 13 U/L (14-36); BILIRUBIN,DIRECT 0.2 mg/dL (0.0-0.4); BILIRUBIN,TOTAL 0.3 mg/dL (0.2-1.3); BLOOD UREA NITROGEN 4 mg/dL (7-20); CALCIUM 8.5 mg/dL (8.4-10.2); CARBON DIOXIDE 21 mmol/L (22-30); CHLORIDE 109 mmol/L (98-107); CREATININE RESULT 0.67 mg/dL (0.52-1.25); GLUCOSE 73 mg/dL (75-110); POTASSIUM 4.6 mmol/L (3.6-5.0); SODIUM 141.5 mmol/L (137-145)
[2017-05-21 16:20] VITALS: BP 110/61
--- NOTE | 2017-05-21 17:42 | EKG REPORT ---
SEVERITY:- NORMAL ECG - SINUS RHYTHM : Confirmed by: Andrea Weiner MD 21-May-2017 17:41:55
== END 2017-05-21 17:09 | disposition home or self-care (01) ==
LOC: ER 13:29
DX: O26.93 Pregnancy related conditions, unspecified, third trimester (principal); R55 Syncope and collapse; Z3A.00 Weeks of gestation of pregnancy not specified
CPT/HCPCS: 36415; 80053; 93005; 93010; 96360; 99284

== ENCOUNTER 2017-06-08 16:44 | Outpatient (CLI) | payer MEDICAID | END 2017-06-08 17:38 | disposition home or self-care (01) | LOC: LC 16:44 | PROVIDERS: ATTEND Obstetrics & Gynecology | PROC: 4A1HXCZ Monitoring of Products of Conception, Cardiac Rate, External Approach (ICD-10-PCS; principal; 2017-06-08) | DX: Z34.93 Encounter for supervision of normal pregnancy, unspecified, third trimester (principal); Z36.89 Encounter for other specified antenatal screening; Z3A.33 33 weeks gestation of pregnancy | CPT/HCPCS: 59025 ==

== ENCOUNTER 2017-07-17 07:31 | Inpatient (IN) | payer MEDICAID ==
[2017-07-17 09:02] LABS: HEMATOCRIT 25.6 % (36.0-47.0); HEMOGLOBIN 8.5 g/dL (12.0-15.5); MEAN CORPUSCULAR HEMOGLOBIN 25.9 pg (27.0-33.4); MEAN CORPUSCULAR HGB CONC 33.1 g/dL (32.0-36.0); MEAN CORPUSCULAR VOLUME 78 fl (80-97); PLATELET COUNT 247 10^3/uL (150-450); RED BLOOD COUNT 3.27 10^6/uL (3.72-5.28); WHITE BLOOD COUNT 11.2 10^3/uL (4.0-10.5)
[2017-07-17] MEDS ORDERED: INFLUENZA ADLT QUAD (36MOS+) 2017-18 VAC 0.5 ML SYR IM PRN (09:10)
[2017-07-17] MEDS ORDERED: CEFAZOLIN 1 GM/D5W RTU 1 GM/50 ML RTUPB IV ONE (09:27)
[2017-07-17] MEDS ORDERED: FENTANYL CITRATE INJ/PF 100 MCG/2 ML AMPUL ONE (09:42)
[2017-07-17] MEDS ORDERED: EPHEDRINE SULFATE INJ 50 MG/1 ML AMPULE ONE (09:42)
[2017-07-17] MEDS ORDERED: OXYTOCIN 10 UNIT/ML VIAL ONE (09:42)
[2017-07-17] MEDS ORDERED: MIDAZOLAM 2 MG/2 ML INJ ONE (09:43)
[2017-07-17] MEDS ORDERED: OXYTOCIN/NORMAL SALINE 20 UNIT/1,000 ML RTUINJ ONE (09:43)
[2017-07-17] MEDS ORDERED: ACETAMINOPHEN 100 ML IV ONE (09:43)
[2017-07-17] MEDS ORDERED: KETAMINE HCL INJ 500 MG/10 ML VIAL ONE (10:27)
--- NOTE | 2017-07-17 10:37 | Non Stress Test Report ---
Non Stress Test Datetime Report Generated by CPN: 07/17/2017 10:37 DEMOGRAPHIC Test Number: 1 EGA NST: 33.1 INDICATION Indication for Study: Ordered by Provider MONITORING Monitor Explained: Monitor Explained; Test Explained; Patient Verbalized Understanding Time on Monitor: 06/08/2017 17:07 Time off Monitor: 06/08/2017 17:34 NST Duration: 27 NST INTERVENTIONS NST Interventions: PO Hydration; Meal Given; Reposition Patient Physician Notified NST: Dr. Jones reveiwed strip BABY A: [id number] BABY A Movement : Present Contraction Frequency : 0 FHR Baseline : 120 Accelerations : 15X15 Decelerations : None Variability : Moderate 6-25bpm NST Review: Meets Criteria for Reactive NST NST Review and Verified By : Rocío Bellavancsujatha RNC NST Results: Reactive NST REPORT Report Trigger: Send Report
[2017-07-17] MEDS ORDERED: DIPHENHYDRAMINE HCL 50 MG/ML VIAL IV PRN (11:00)
[2017-07-17] MEDS ORDERED: PROMETHAZINE HCL INJ 25 MG/1 ML VIAL IV PRN ×2 (11:00→11:24)
[2017-07-17] MEDS ORDERED: FENTANYL CITRATE INJ/PF 100 MCG/2 ML AMPUL IV PRN ×3 (11:00)
[2017-07-17] MEDS ORDERED: ACETAMINOPHEN 325 MG TABLET PO PRN (11:24)
[2017-07-17] MEDS ORDERED: OXYTOCIN/NORMAL SALINE 20 UNIT/1,000 ML RTUINJ IV PRN (11:24)
[2017-07-17] MEDS ORDERED: MEASLES,MUMPS&RUBELLA VACC/PF 0.5 ML VIAL SUBCUT PRN (11:24)
[2017-07-17] MEDS ORDERED: MORPHINE SULFATE 10 MG/ML INJ IV PRN (11:24)
[2017-07-17] MEDS ORDERED: OXYCODONE-ACETAMINOPHEN 5-325 MG TABLET PO PRN (11:24)
[2017-07-17] MEDS ORDERED: DIPH/PERTUSS(ACELL)/TETANUS VAC/PF 0.5 ML SYR (>=10YO) IM PRN (11:24)
[2017-07-17] MEDS ORDERED: RINGERS SOLUTION,LACTATED 1,000 ML IV PRN (11:24)
[2017-07-17] MEDS ORDERED: ACETAMINOPHEN 100 ML IV PRN (11:24)
[2017-07-17] MEDS ORDERED: KETOROLAC TROMETHAMINE INJ/PF 30 MG/1 ML SDV ONE (11:47)
[2017-07-17] MEDS: KETOROLAC TROMETHAMINE INJ/PF 30 MG/1 ML SDV IV SCH ×2 (11:48→22:03)
--- NOTE | 2017-07-17 11:54 | OPERATIVE REPORT E ---
Operative Report NAME: AYE FABIAN : 1995 AGE: 22Y DATE OF SURGERY: 07/17/2017 ROOM: 227 PREOPERATIVE DIAGNOSIS: IUP at 39 weeks, previous , desires repeat. POSTOPERATIVE DIAGNOSIS: IUP at 39 weeks, previous , desires repeat. PROCEDURE: Repeat low-transverse hysterotomy section with lysis of adhesions. SURGEON: JOY FULTON M.D. ANESTHESIA: Dr. Kumar with a spinal. FINDINGS: A male in cephalic presentation with Apgars of 8 and 9, weight 7 pounds 10 ounces. COMPLICATIONS: None. ESTIMATED BLOOD LOSS: 600 mL. SPECIMENS REMOVED: None. PROCEDURE IN DETAIL: Patient was taken to the operating room, prepared and draped in a normal sterile fashion in a supine position with a leftward tilt. A transverse skin incision was made with a scalpel and carried through to the underlying layer of fascia with the same scalpel. The fascia was excised and extended laterally with Jose. The fascia was then dissected from the rectus muscles sharply with Rodriguez scissors. The rectus muscle had to be divided sharply using the Bovie due to multiple adhesions. The rectus muscle was then divided and the peritoneal cavity was entered bluntly. Visualization of the bladder was good. Some lysis of adhesions did take place to loosen the uterus from the anterior abdominal wall. The hysterotomy was then nicked with a scalpel and extended laterally with surgeon finger fraction. The infant was then delivered with some difficulty and extension of each incision had to be performed due to infant head circumference. Once he was delivered the nose and mouth were suctioned with a suction bulb, the cord was clamped and cut, and the was handed off to awaiting pediatricians. The cord blood was collected and the placenta was removed manually. The uterus was exteriorized and cleared of clots and debris at that time. The hysterotomy was then closed with 0 Monocryl in a running, locked fashion. A second layer of the same suture was used to imbricate to ensure hemostasis. The uterus was then returned to the abdomen and the peritoneal cavity was cleared of clots and debris. INTERCEED was placed along the lines of the hysterotomy in order to attempt to prevent further adhesions. The rectus muscle and peritoneum were reapproximated with a mattress stitch of 2-0 chromic. The fascia was closed with 0 Vicryl. The subcutaneous layer was closed with plain catgut, and the skin was closed with 4-0 Vicryl. The patient tolerated the procedure well. Sponge, lap, and needle counts were correct x2. The patient was taken to recovery in stable condition. DICTATING PHYSICIAN: JOY FULTON M.D. [id number] PHY#: [id number] ID: [id number] JOB#: [id number] ACCT: [id number] cc:JOY FULTON M.D. >
[2017-07-17] MEDS ORDERED: MORPHINE SULFATE 10 MG/ML INJ ONE (12:18)
[2017-07-17] MEDS ORDERED: ONDANSETRON HCL INJ/PF 4 MG/2 ML SDV ONE (12:50)
[2017-07-17] MEDS ORDERED: PHENYLEPHRINE HCL INJ/PF 10 MG/1 ML SDV ONE (12:50)
[2017-07-17] MEDS ORDERED: LIDOCAINE 2% INJ-PF (20 MG/ML) 2 ML AMPUL ONE (12:50)
[2017-07-17] MEDS ORDERED: GLYCOPYRROLATE INJ 0.4 MG/2 ML VIAL ONE (12:50)
[2017-07-17] MEDS: IBUPROFEN 800 MG TABLET PO SCH ×2 (13:57→18:03)
[2017-07-17] MEDS: OXYCODONE-ACETAMINOPHEN 5-325 MG TABLET PO PRN ×2 (14:53→22:03)
[2017-07-17] MEDS: DOCUSATE SODIUM 100 MG CAPSULE PO SCH (18:17)
[2017-07-18] MEDS: IBUPROFEN 800 MG TABLET PO SCH ×5 (05:27→23:56)
[2017-07-18] MEDS: KETOROLAC TROMETHAMINE INJ/PF 30 MG/1 ML SDV IV SCH (05:35)
[2017-07-18 06:36] LABS: HEMATOCRIT 22.4 % (36.0-47.0); MEAN CORPUSCULAR HEMOGLOBIN 26.4 pg (27.0-33.4); MEAN CORPUSCULAR HGB CONC 33.4 g/dL (32.0-36.0); MEAN CORPUSCULAR VOLUME 79 fl (80-97); PLATELET COUNT 215 10^3/uL (150-450); RED BLOOD COUNT 2.85 10^6/uL (3.72-5.28); WHITE BLOOD COUNT 10.5 10^3/uL (4.0-10.5)
[2017-07-18 06:46] LABS: HEMOGLOBIN 7.5 g/dL (12.0-15.5)
[2017-07-18] MEDS: OXYCODONE-ACETAMINOPHEN 5-325 MG TABLET PO PRN ×3 (08:20→23:53)
[2017-07-18] MEDS: DOCUSATE SODIUM 100 MG CAPSULE PO SCH ×2 (09:34→17:43)
[2017-07-18] MEDS: PRENATAL VITAMIN W DHA CAPSULE PO SCH (09:34)
--- NOTE | 2017-07-18 09:43 | PDOC PROGRESS REPORT ---
Subjective-OB Subjective: Post Delivery Day: 22 year old. Denies any needs at this time Doing well, pain under control, hsb asleep in chair, breast feeding, feeling gas but not passing, eating and drinking, no nausea, has been OOB to BR Physical Exam (OB) Vital Signs: Temp Pulse Resp BP Pulse Ox 98.1 F 99 17 128/71 H 99 07/18/17 08:14 07/18/17 08:14 07/18/17 08:14 07/18/17 08:14 07/18/17 08:14 Intake & Output 07/17/17 07/18/17 07/19/17 06:59 06:59 06:59 Intake Total 1240 Output Total 1251 Balance -11 Weight 95.254 kg - PIH/Pre-Eclampsia DTR's: 1 + Clonus: Negative Headache: Absent Epigastric Pain: No Visual Changes: No - Dressing Removed: No Incision: Dressing Closure Type: Sutures - Bilateral Tubal Ligation Dressing Removed: No Site: Dressing - Lochia Lochia Amount: Scant < 10 ml Lochia Color: Rubra/Red - Abdomen Description: Tender, Soft, Round Hernia Present: No Fundal Description: Firm, Midline Fundal Height: u/u - u/2 Objective-Diagnostic Laboratory: 07/18/17 06:16 07/17/17 07/18/17 08:53 06:16 WBC 10.5 RBC 2.85 L Hgb 7.5 L Hct 22.4 L MCV 79 L MCH 26.4 L MCHC 33.4 RDW 17.0 H Plt Count 215 Blood Type O POSITIVE Antibody Screen NEGATIVE Assessment and Plan(PN) - Assessment and Plan (1) delivery delivered Is this a current diagnosis for this admission?: Yes (2) Smoker Is this a current diagnosis for this admission?: Yes (3) Positive GBS test Is this a current diagnosis for this admission?: Yes (4) Sickle cell trait Is this a current diagnosis for this admission?: Yes (5) Failure of descent in labor, delivered, current hospitalization Is this a current diagnosis for this admission?: Yes - Time Spent with Patient Time with patient: Less than 15 minutes Medications reviewed and adjusted accordingly: Yes - Disposition Anticipated Discharge: Home Within: within 24 hours
[2017-07-18] MEDS: SIMETHICONE 80 MG TAB.CHEW PO PRN (20:57)
[2017-07-19] MEDS: IBUPROFEN 800 MG TABLET PO SCH ×2 (05:16→12:09)
[2017-07-19] MEDS: SIMETHICONE 80 MG TAB.CHEW PO PRN (05:17)
[2017-07-19] MEDS: DOCUSATE SODIUM 100 MG CAPSULE PO SCH (09:18)
[2017-07-19] MEDS: PRENATAL VITAMIN W DHA CAPSULE PO SCH (09:18)
[2017-07-19 10:11] VITALS: BP 134/75
--- NOTE | 2017-07-19 11:41 | PDOC DISCHARGE SUMMARY ---
Final Diagnosis Discharge Date: 07/19/17 - Final Diagnosis (1) Status post repeat low transverse section Is this a current diagnosis for this admission?: Yes (2) Anemia affecting in third trimester Is this a current diagnosis for this admission?: Yes (3) Is this a current diagnosis for this admission?: Yes (4) Smoker Is this a current diagnosis for this admission?: Yes (5) Sickle cell trait Is this a current diagnosis for this admission?: Yes Discharge Data - Discharge Medication Home Medications: Docusate Sodium [Colace 100 mg Capsule] 100 mg PO BID #60 capsule 07/19/17 Ferrous Sulfate [Chasity-Time] 325 mg PO BID #60 tablet 07/19/17 Ibuprofen [Motrin 800 mg Tablet] 800 mg PO Q8HP PRN #60 tablet 07/19/17 Oxycodone HCl/Acetaminophen [Percocet 5-325 mg Tablet] 1 tab PO Q4HP PRN #20 tablet 07/19/17 Vit/Dha [ Multi + Dha Capsule] 1 cap PO DAILY #90 capsule 07/19 Reason(s) for Admission: Ceasarean Section-Repeat Procedures: Ultrasound Intrapartum Procedure(s): : Low Cervical, Transverse - Diagnosis Test Laboratory: Temp Pulse Resp BP Pulse Ox 98.1 F 97 18 142/81 H 100 07/19/17 07:56 07/19/17 07:56 07/19/17 04:00 07/19/17 07:56 07/19/17 07:56 07/17/17 07/18/17 08:53 06:16 RBC 3.27 L 2.85 L Hgb 8.5 L 7.5 L Hct 25.6 L 22.4 L - Discharge information/Instructions Discharge Activity: Activity As Tolerated, Balance Activity w/Rest, No Driving, No Lifting Over 10 Pounds, No Lifting/Push/Pulling, Pelvic Rest, No tub bath, Walk Frequently Discharge Diet: Regular Disposition: HOME, SELF-CARE Follow up with: [facility] in: 5, Days - incision check
--- NOTE | 2017-08-08 13:15 | PDOC DELIVERY SUMMARY ---
Delivery Summary - Maternal Hx : II Hx # Term Pregnancies: 1 Hx Total # of Abortions (Sponateous & Elective): 0 DIPTI: 07/23/17 Gestational Age: 39 + 0 Ruptured Membranes: AROM Time of Rupture: 10:45 Fluids: Clear - Delivery Presentation: Vertex Heart Rate Monitoring: Done Pre-Operatively Support Person Present: Yes Location: OR : Scheduled, Repeat Placenta: Within Normal Limits Delivery of Placenta Date: 07/17/17 Delivery of Placenta Time: 10:50 - Medications Type of Anesthesia:: Spinal - Assess and Care Baby 1 Male Delivery of Infant Date: 07/17/17 Delivery of Infant Time: 10:49 at 1 minute: 8 at 5 minutes: 9 Preprinted Number On Band: [id number] Infant Skin to Skin: Yes Skin to Skin (Mins): 3 To Nursery At: 10:58 Mode of Transport: Bassinet Delivery Weight: 34.7 Infant Delivery Length: 19.5 in - Delivery Personnel Distribution Center Associate: FRITZ MONGE Nursery RN: JUDSON BOB RN: RIAZ SCOTT MD: JOY FULTON
== END 2017-07-19 14:55 | disposition home or self-care (01) | DRG 766 ==
LOC: 2S 07:31
PROVIDERS: ADMIT Obstetrics & Gynecology; ATTEND Obstetrics & Gynecology
PROC: 4A1HXCZ Monitoring of Products of Conception, Cardiac Rate, External Approach (ICD-10-PCS; 2017-07-17)
PROC: 10D00Z1 Extraction of Products of Conception, Low, Open Approach (ICD-10-PCS; principal; 2017-07-17 10:30)
PROC: 3E0234Z Introduction of Serum, Toxoid and Vaccine into Muscle, Percutaneous Approach (ICD-10-PCS; 2017-07-19)
DX: O32.4XX0 Maternal care for high head at term, not applicable or unspecified (principal); O34.211 Maternal care for low transverse scar from previous cesarean delivery; O99.02 Anemia complicating childbirth; O99.334 Smoking (tobacco) complicating childbirth; F17.210 Nicotine dependence, cigarettes, uncomplicated; D57.3 Sickle-cell trait; O99.824 Streptococcus B carrier state complicating childbirth; Z3A.39 39 weeks gestation of pregnancy; Z23 Encounter for immunization; Z37.0 Single live birth
CPT/HCPCS: 1961; 36415; 85027; 86850; 86900; 86901; 90686; 90715; 94799; C1765; J0131; J0690; J1885; J2250; J2270; J2370; J2405; J2590; J3010; J3490

== ENCOUNTER 2019-02-27 07:02 | Emergency (ER) | payer SELFPAY ==
[2019-02-27 08:48] LABS: ABSOLUTE BASOPHILS # (AUTO) 0.1 10^3/uL (0.0-0.2); ABSOLUTE EOSINOPHILS # (AUTO) 0.2 10^3/uL (0.0-0.6); ABSOLUTE MONOCYTES (AUTO) 0.6 10^3/uL (0.1-1.4); ABSOLUTE NEUT (AUTO) 5.7 10^3/uL (1.7-8.2); BASOPHILS % (AUTO) 0.6 % (0-2); EOSINOPHILS % (AUTO) 2.5 % (0-6); HEMATOCRIT 35.2 % (36.0-47.0); HEMOGLOBIN 11.9 g/dL (12.0-15.5); LYMPHOCYTES % (AUTO) 23.7 % (13-45); MEAN CORPUSCULAR HEMOGLOBIN 27.3 pg (27.0-33.4); MEAN CORPUSCULAR HGB CONC 33.9 g/dL (32.0-36.0); MEAN CORPUSCULAR VOLUME 80 fl (80-97); MONOCYTES % (AUTO) 6.7 % (3-13); PLATELET COUNT 259 10^3/uL (150-450); RED BLOOD COUNT 4.38 10^6/uL (3.72-5.28); RED CELL DISTRIBUTION WIDTH 15.8 % (11.5-14.0); SEGMENTED NEUTROPHILS % (AUTO) 66.5 % (42-78); TOTAL CELLS COUNTED % (AUTO) 100 %; WHITE BLOOD COUNT 8.6 10^3/uL (4.0-10.5)
[2019-02-27 08:54] LABS: APPEARANCE,URINE SLIGHTLY-CLOUDY; BILIRUBIN,URINE NEGATIVE (NEGATIVE); COLOR,URINE YELLOW; GLUCOSE, URINE NEGATIVE (NEGATIVE); KETONES,URINE NEGATIVE (NEGATIVE); LEUKOCYTE ESTERASE,URINE TRACE (NEGATIVE); NITRITE,URINE POSITIVE (NEGATIVE); PROTEIN,URINE NEGATIVE (NEGATIVE); URINE SPECIFIC GRAVITY 1.014; UROBILINOGEN,URINE NEGATIVE mg/dL (<2.0)
[2019-02-27 09:08] LABS: ALANINE AMINOTRANSFERASE 17 U/L (9-52); ALBUMIN 4.5 g/dL (3.5-5.0); ALKALINE PHOSPHATASE 59 U/L (38-126); ANION GAP 11 (5-19); ASPARTATE AMINO TRANSFERASE 22 U/L (14-36); BILIRUBIN,DIRECT 0.2 mg/dL (0.0-0.4); BILIRUBIN,TOTAL 0.3 mg/dL (0.2-1.3); BLOOD UREA NITROGEN 7 mg/dL (7-20); CALCIUM 9.6 mg/dL (8.4-10.2); CARBON DIOXIDE 28 mmol/L (22-30); CHLORIDE 104 mmol/L (98-107); GLUCOSE 73 mg/dL (75-110); POTASSIUM 3.7 mmol/L (3.6-5.0)
[2019-02-27 10:38] LABS: CHLAM PCR NOT DETECTED (NOT DETECT)
[2019-02-27 11:17] VITALS: BP 128/83
--- NOTE | 2019-02-27 13:21 | ER Document Report ---
Entered by DEREK BALBUENA SCRIBE 02/27/19 0848 Acting as scribe for:ARPIT NGO MD ED General - General Chief Complaint: Flank Pain Stated Complaint: BLOODY URINE/BODY PAIN Time Seen by Provider: 02/27/19 08:35 Mode of Arrival: Ambulatory Information source: Patient Notes: Patient is a 23 year old female that presents to the emergency department today with complaints of generalized malaise with associated "pink or orange" colored urine, low back pain, frequent headaches, lower abdominal pain, and vomiting. Patient states all of those previously mentioned symptoms have been off and on for x2 months. Patient states her last menstrual period was two weeks ago. Patient expresses concern for possible STI and would like to be checked. TRAVEL OUTSIDE OF THE [place] IN LAST 30 DAYS: No - Related Data Allergies/Adverse Reactions: fish derived [Fish derived] Allergy (Verified 09/01/16 12:17) Past Medical History - General Information source: Patient - Social History Smoking Status: Unknown if Ever Smoked Family History: Arthritis, CAD, DM, Hyperlipidemia, Hypertension Patient has suicidal ideation: No Patient has homicidal ideation: No Psychiatric Medical History: Reports: Hx Depression Past Surgical History: Reports: Hx Section - Immunizations Immunizations up to date: Yes Hx Diphtheria, Pertussis, Tetanus Vaccination: Yes - always received Review of Systems - Review of Systems Constitutional: See HPI, Malaise EENT: No symptoms reported Cardiovascular: No symptoms reported Respiratory: No symptoms reported Gastrointestinal: See HPI, Abdominal pain, Vomiting Genitourinary: See HPI, Other - "pink or orange tinged" Female Genitourinary: No symptoms reported Musculoskeletal: See HPI, Back pain Skin: No symptoms reported Hematologic/Lymphatic: No symptoms reported Neurological/Psychological: See HPI, Headaches -: Yes All other systems reviewed and negative Physical Exam - Vital signs Vitals: Temp Pulse Resp BP Pulse Ox 98.4 F 94 16 133/75 H 99 02/27/19 07:22 02/27/19 07:22 02/27/19 07:22 02/27/19 07:22 02/27/19 07:22 - Notes Notes: Physical Exam: General: Alert, appears well. HEENT: Normocephalic. Atraumatic. PERRL. Extraocular movements intact. Oropharynx clear. Neck: Supple. Non-tender. Respiratory: No respiratory distress. Clear and equal breath sounds bilaterally. Cardiovascular: Regular rate and rhythm. Abdominal: Suprapubic and pelvic tenderness with palpation. No distension. Normal Bowel Sounds. Back: Lumbar paraspinal musculature tenderness with palpation. No deformity or step off. Extremities: Moves all four extremities. Upper extremities: Normal inspection. Normal ROM. Lower extremities: Normal inspection. No edema. Normal ROM. Neurological: Normal cognition. AAOx4. Normal speech. Psychological: Normal affect. Normal Mood. Skin: Warm. Dry. Normal color. Course - Vital Signs Vital signs: Temp Pulse Resp BP Pulse Ox 98.2 F 77 16 128/83 H 100 02/27/19 11:13 02/27/19 11:13 02/27/19 11:13 02/27/19 11:13 02/27/19 11:13 - Laboratory Result Diagrams: 02/27/19 08:30 02/27/19 08:30 Laboratory results interpreted by me: 02/27/19 02/27/19 02/27/19 08:30 08:30 08:30 Hgb 11.9 L Hct 35.2 L RDW 15.8 H Glucose 73 L Urine Blood MODERATE H Urine Nitrite POSITIVE H Ur Leukocyte Esterase TRACE H Discharge - Discharge Clinical Impression: Urinary tract infection Qualifiers: Urinary tract infection type: acute cystitis Hematuria presence: with hematuria Qualified Code(s): N30.01 - Acute cystitis with hematuria Condition: Stable Disposition: HOME, SELF-CARE Additional Instructions: Urinary Tract Infection Your evaluation indicates that you have a urinary tract infection. This is due to germs growing in the bladder. This is a common problem. This infection usually responds quickly to antibiotics. Your antibiotic should be taken exactly as prescribed. Drink plenty of fluids -- three to four quarts a day. Occasionally, a bladder anesthetic will be prescribed to help stop the feeling of urgency until the antibiotic has a chance to clear the infection. This may cause your urine to be dark orange. Certain urine infections require a culture. If the doctor obtained a culture, the results will be back in two days. You should call to see if a change in treatment is needed. A repeat urinalysis after you finish treatment is often recommended. The physician will let you know if further testing is required. Call the doctor if you develop fever, chills, flank pain, inability to urinate, or blood in the urine. Take medications as prescribed. Drink plenty of fluids. Take Tylenol and ibuprofen for your headaches and back pain. Follow-up with a local medical doctor to discuss management of your migraine headaches and low back pain. RETURN TO THE EMERGENCY ROOM IF ANY NEW OR WORSENING SYMPTOMS. Prescriptions: Doxycycline Hyclate 100 mg PO BID #14 tablet.dr Quinones Attestation: 02/27/19 10:49 I personally performed the services described in the documentation, reviewed and edited the documentation which was dictated to the scribe in my presence, and it accurately records my words and actions. I personally performed the services described in the documentation, reviewed and edited the documentation which was dictated to the scribe in my presence, and it accurately records my words and actions.
== END 2019-02-27 11:14 | disposition home or self-care (01) ==
LOC: ER 07:02
DX: N30.01 Acute cystitis with hematuria (principal); R53.81 Other malaise; R11.10 Vomiting, unspecified; R51 Headache; M54.5 Low back pain; R10.30 Lower abdominal pain, unspecified; Z91.013 Allergy to seafood
CPT/HCPCS: 36415; 80053; 81001; 83690; 84703; 85025; 87491; 87591; 99284

== ENCOUNTER 2019-09-18 10:45 | Emergency (ER) | payer SELFPAY ==
--- NOTE | 2019-09-18 12:33 | ER Document Report ---
ED Medical Screen (RME) - General Chief Complaint: Vaginal Bleeding Stated Complaint: VAGINAL BLEEDING Time Seen by Provider: 09/18/19 12:26 Mode of Arrival: Ambulatory Information source: Patient Notes: 24-year-old female presents emergency department with complaints of severe heavy vaginal bleeding going through tampon pads at least once an hour for the past week. She reports she finished her menses last week. She reports she had unprotected sex right after finishing. The next day she obtained Plan B. She reports the day after that she had some very yellow vaginal discharge. She r eports that she then started bleeding. She reports she is having very very heavy bleeding. Denies fever vomiting diarrhea. Gives history of abnormal cells after a Pap smear that she never followed up with. Patient has had a child since that time. TRAVEL OUTSIDE OF THE [place] IN LAST 30 DAYS: No - Related Data Allergies/Adverse Reactions: fish derived [Fish derived] Allergy (Verified 09/18/19 12:31) Past Medical History - Social History Frequency of alcohol use: None Drug Abuse: None - Past Medical History Cardiac Medical History: Denies: Hx Hypertension, Hx Pulmonary Embolism, Hx Heart Murmur Pulmonary Medical History: Denies: Hx Asthma, Hx Sleep Apnea, Hx Tuberculosis Neurological Medical History: Denies: Hx Cerebrovascular Accident, Hx Seizures Endocrine Medical History: Denies: Hx Hyperthyroidism, Hx Hypothyroidism Renal/ Medical History: Denies: Hx Kidney Stones, Hx Ovarian Cysts, Hx Peritoneal Dialysis, Hx Pelvic Inflammatory Disease Malignancy Medical History: Denies: Hx Breast Cancer, Hx Cervical Cancer, Hx Ovarian Cancer GI Medical History: Denies: Hx Gastroesophageal Reflux Disease, Hx Hiatal Hernia, Hx Ulcer Musculoskeltal Medical History: Denies Hx Fibromyalgia Psychiatric Medical History: Reports: Hx Depression Denies: Hx Bipolar Disorder, Hx Post Traumatic Stress Disorder, Hx Schizophrenia Traumatic Medical History: Denies: Hx Fractures Infectious Medical History: Denies: Hx HIV Past Surgical History: Reports: Hx Section - Immunizations Immunizations up to date: Yes Hx Diphtheria, Pertussis, Tetanus Vaccination: Yes - always received Physical Exam - Vital signs Vitals: Temp Pulse Resp BP Pulse Ox 99.4 F 100 18 136/70 H 99 09/18/19 11:04 09/18/19 11:04 09/18/19 11:04 09/18/19 11:04 09/18/19 11:04 Course - Vital Signs Vital signs: Temp Pulse Resp BP Pulse Ox 99.4 F 100 18 136/70 H 99 09/18/19 11:04 09/18/19 11:04 09/18/19 11:04 09/18/19 11:04 09/18/19 11:04
[2019-09-18 13:20] LABS: ABSOLUTE EOSINOPHILS # (AUTO) 0.4 10^3/uL (0.0-0.6); ABSOLUTE LYMPHOCYTES (AUTO) 1.7 10^3/uL (0.5-4.7); ABSOLUTE MONOCYTES (AUTO) 0.5 10^3/uL (0.1-1.4); ABSOLUTE NEUT (AUTO) 4.2 10^3/uL (1.7-8.2); BASOPHILS % (AUTO) 0.6 % (0-2); EOSINOPHILS % (AUTO) 6.4 % (0-6); HEMATOCRIT 34.5 % (36.0-47.0); HEMOGLOBIN 11.7 g/dL (12.0-15.5); LYMPHOCYTES % (AUTO) 24.4 % (13-45); MEAN CORPUSCULAR HEMOGLOBIN 27.3 pg (27.0-33.4); MEAN CORPUSCULAR HGB CONC 33.8 g/dL (32.0-36.0); MEAN CORPUSCULAR VOLUME 81 fl (80-97); MONOCYTES % (AUTO) 7.5 % (3-13); PLATELET COUNT 261 10^3/uL (150-450); RED BLOOD COUNT 4.29 10^6/uL (3.72-5.28); SEGMENTED NEUTROPHILS % (AUTO) 61.1 % (42-78); TOTAL CELLS COUNTED % (AUTO) 100 %; WHITE BLOOD COUNT 6.9 10^3/uL (4.0-10.5)
[2019-09-18 13:44] LABS: ALBUMIN 4.5 g/dL (3.5-5.0); ALKALINE PHOSPHATASE 59 U/L (38-126); ANION GAP 10 (5-19); ASPARTATE AMINO TRANSFERASE 22 U/L (14-36); BILIRUBIN,DIRECT 0.2 mg/dL (0.0-0.4); BILIRUBIN,TOTAL 0.5 mg/dL (0.2-1.3); BLOOD UREA NITROGEN 10 mg/dL (7-20); CALCIUM 9.2 mg/dL (8.4-10.2); CARBON DIOXIDE 29 mmol/L (22-30); CHLORIDE 103 mmol/L (98-107); POTASSIUM 4.1 mmol/L (3.6-5.0); TOTAL PROTEIN 8.1 g/dL (6.3-8.2)
[2019-09-18 13:51] LABS: GLUCOSE 52 mg/dL (75-110)
--- NOTE | 2019-09-18 14:04 | ER Document Report ---
ED General - General Chief Complaint: Vaginal Bleeding Stated Complaint: VAGINAL BLEEDING Time Seen by Provider: 09/18/19 12:26 Primary Care Provider: RENAY BARRY MD [ACTIVE PROVISIONAL STAFF] - Follow up in 3-5 days Mode of Arrival: Ambulatory TRAVEL OUTSIDE OF THE [place] IN LAST 30 DAYS: No - HPI Notes: 24-year-old female to the emergency department with complaints of abnormal vaginal bleeding is been ongoing since August. She states in August she had a heavy period that lasted over a week but then it stopped about a week ago. She states then she had unprotected sex and decided to take Plan B about 4 days ago. She states initially she had a yellow odorless vaginal discharge but then she began to have worsening vaginal bleeding. She states that she has low back pain with it and she states that she has been seeing clots. She states she has been bleeding through 1 tampon an hour. She denies any fevers or chills. She denies bonilla concern for STD but would like to be empirically treated. She states that she has been once. She denies any other symptoms. - Related Data Allergies/Adverse Reactions: fish derived [Fish derived] Allergy (Verified 09/18/19 12:31) Past Medical History - General Information source: Patient - Social History Smoking Status: Current Every Day Smoker Frequency of alcohol use: None Drug Abuse: None Family History: Arthritis, CAD, DM, Hyperlipidemia, Hypertension Patient has suicidal ideation: No Patient has homicidal ideation: No - Past Medical History Cardiac Medical History: Denies: Hx Hypertension, Hx Pulmonary Embolism, Hx Heart Murmur Pulmonary Medical History: Denies: Hx Asthma, Hx Sleep Apnea, Hx Tuberculosis Neurological Medical History: Denies: Hx Cerebrovascular Accident, Hx Seizures Endocrine Medical History: Denies: Hx Hyperthyroidism, Hx Hypothyroidism Renal/ Medical History: Denies: Hx Kidney Stones, Hx Ovarian Cysts, Hx Peritoneal Dialysis, Hx Pelvic Inflammatory Disease Malignancy Medical History: Denies: Hx Breast Cancer, Hx Cervical Cancer, Hx Ovarian Cancer GI Medical History: Denies: Hx Gastroesophageal Reflux Disease, Hx Hiatal Hernia, Hx Ulcer Musculoskeletal Medical History: Denies Hx Fibromyalgia Psychiatric Medical History: Reports: Hx Depression Denies: Hx Bipolar Disorder, Hx Post Traumatic Stress Disorder, Hx Schizophrenia Traumatic Medical History: Denies: Hx Fractures Infectious Medical History: Denies: Hx HIV Past Surgical History: Reports: Hx Section - Immunizations Immunizations up to date: Yes Hx Diphtheria, Pertussis, Tetanus Vaccination: Yes - always received Review of Systems - Review of Systems Constitutional: denies: Chills, Fever EENT: No symptoms reported Cardiovascular: denies: Chest pain, Palpitations, Heart racing, Dizziness, Lightheaded, Edema Respiratory: denies: Cough, Short of breath Gastrointestinal: denies: Abdominal pain, Diarrhea, Nausea, Vomiting Genitourinary: denies: Frequency, Flank pain Female Genitourinary: See HPI, Heavy/abnormal periods, Vaginal discharge, Vaginal bleeding Musculoskeletal: Back pain Skin: No symptoms reported Hematologic/Lymphatic: No symptoms reported Neurological/Psychological: No symptoms reported -: Yes All other systems reviewed and negative Physical Exam - Vital signs Vitals: Temp Pulse Resp BP Pulse Ox 99.4 F 100 18 136/70 H 99 09/18/19 11:04 09/18/19 11:04 09/18/19 11:04 09/18/19 11:04 09/18/19 11:04 Interpretation: Normal - General General appearance: Appears well, Alert In distress: None - HEENT Head: Normocephalic, Atraumatic Eyes: Normal Pupils: PERRL - Respiratory Respiratory status: No respiratory distress Chest status: Nontender Breath sounds: Normal. No: Rales, Rhonchi, Wheezing Chest palpation: Normal - Cardiovascular Rhythm: Regular Heart sounds: Normal auscultation Murmur: No - Abdominal Inspection: Normal Distension: No distension Bowel sounds: Normal Tenderness: Nontender. No: Tender, McBurney's point, Rodrigues's sign, Guarding, Rebound Organomegaly: No organomegaly - Genitourinary External exam: Normal Speculum exam: Cervix closed Vaginal bleeding: Moderate - + vaginal bleeding -- consistent with moderate period. No clots or hemorrhage Bimanuel exam: Normal. No: Cervical motion tender, Adnexal mass, Adnexal tenderness, Uterus enlarged Notes: Chaperoned by JOHN Ching. - Back Back: Normal, Nontender. No: Deformity/step-off, CVA tenderness, Vertebra tenderness - Neurological Neuro grossly intact: Yes Cognition: Normal Orientation: AAOx4 Elizabeth Coma Scale Eye Opening: Spontaneous [place] Coma Scale Verbal: Oriented Elizabeth Coma Scale Motor: Obeys Commands Elizabeth Coma Scale Total: 15 Speech: Normal Cranial nerves: Normal Cerebellar coordination: Normal Motor strength normal: LUE, RUE, LLE, RLE Additional motor exam normals: Equal junior oracle dba. No: Pronator drift Sensory: Normal - Psychological Associated symptoms: Normal affect, Normal mood - Skin Skin Temperature: Warm Skin Moisture: Dry Skin Color: Normal Course - Re-evaluation Re-evalutation: 09/18/19 16:36 Impression: Abnormal vaginal bleeding, BV. Will send home with yl. Will send home wt [facility] follow up. Not hemorrhaging on pelvic exam, H and H with mild anemia, UA without UTI. Vital signs stable. negative for . - Vital Signs Vital signs: Temp Pulse Resp BP Pulse Ox 97.6 F 80 16 122/73 99 09/18/19 15:55 09/18/19 15:55 09/18/19 15:55 09/18/19 15:55 09/18/19 15:55 - Laboratory Result Diagrams: 09/18/19 13:04 09/18/19 13:04 Laboratory results interpreted by me: 09/18/19 09/18/19 09/18/19 13:04 13:04 15:35 Hgb 11.7 L Hct 34.5 L RDW 17.0 H Eos % (Auto) 6.4 H Glucose 52 L Urine Blood LARGE H Discharge - Discharge Clinical Impression: Abnormal vaginal bleeding, Bacterial vaginosis Condition: Stable Disposition: HOME, SELF-CARE Instructions: Vaginal Bleeding ([facility]), Vaginosis, Bacterial ([facility]) Additional Instructions: FOLLOW UP WITH [facility] WITHOUT FAIL. RETURN IF WORSENING SYMPTOMS. PUSH FLUIDS. Prescriptions: Fluconazole [Diflucan] 100 mg PO ONCE PRN #1 tablet PRN Reason: Ferrous Sulfate 325 mg PO DAILY #30 tablet. Metronidazole [Flagyl 500 mg Tablet] 500 mg PO BID #14 tablet Forms: Return to Work Referrals: RENAY BARRY MD [ACTIVE PROVISIONAL STAFF] - Follow up in 3-5 days
[2019-09-18] MEDS ORDERED: LIDOCAINE 1% INJ-PF (10 MG/ML) 30 ML SDV IM ONE (14:48)
[2019-09-18] MEDS ORDERED: CEFTRIAXONE INJ 250 MG VIAL IM ONE (14:48)
[2019-09-18] MEDS ORDERED: AZITHROMYCIN 250 MG TABLET PO ONE (14:48)
[2019-09-18] MEDS ORDERED: ONDANSETRON 4 MG TAB.RAPDIS PO ONE (14:48)
[2019-09-18] MEDS ORDERED: METHOCARBAMOL 500 MG TABLET PO ONE (14:49)
[2019-09-18 15:00] LABS: BACTERIA (WET MOUNT) 4+ BACTERIA SEEN; EPITHELIALS (WET MOUNT) 3+ EPITHELIALS SEEN; RBCS (WET MOUNT) 4+ RBCS SEEN; T.VAGINALIS (WET MOUNT) NO TRICHOMONAS SEEN; WBCS (WET MOUNT) 1+ WBCS SEEN; YEAST (WET MOUNT) NO YEAST SEEN
[2019-09-18 15:57] VITALS: BP 122/73
[2019-09-18 16:25] LABS: CHLAM PCR NOT DETECTED (NOT DETECT)
[2019-09-18 16:28] LABS: APPEARANCE,URINE CLEAR; BILIRUBIN,URINE NEGATIVE (NEGATIVE); COLOR,URINE YELLOW; GLUCOSE, URINE NEGATIVE (NEGATIVE); KETONES,URINE NEGATIVE (NEGATIVE); LEUKOCYTE ESTERASE,URINE NEGATIVE (NEGATIVE); NITRITE,URINE NEGATIVE (NEGATIVE); PROTEIN,URINE NEGATIVE (NEGATIVE); URINE SPECIFIC GRAVITY 1.014; UROBILINOGEN,URINE NEGATIVE mg/dL (<2.0)
== END 2019-09-18 16:45 | disposition home or self-care (01) ==
LOC: ER 10:45
DX: N93.8 Other specified abnormal uterine and vaginal bleeding (principal); N76.0 Acute vaginitis; B96.89 Other specified bacterial agents as the cause of diseases classified elsewhere; F17.200 Nicotine dependence, unspecified, uncomplicated
CPT/HCPCS: 86900; 86901; 36415; 87210; 86850; 84703; 85025; 80053; 81001; 87491; 87591; S0119; J3490; J0696